=== PATIENT | female | born 1935 | race Caucasian/White ===

== ENCOUNTER → 2018-04-25 | Outpatient (CLI) | payer MEDICARE, OTHER | END | disposition home or self-care (01) | LOC: EKG 10:07 | DX: I38 Endocarditis, valve unspecified (principal) | CPT/HCPCS: 93306 ==

== ENCOUNTER → 2019-05-16 | Outpatient (CLI) | payer MEDICARE, OTHER | END | disposition home or self-care (01) | LOC: EKG 09:03 | DX: I50.9 Heart failure, unspecified (principal) | CPT/HCPCS: 93306 ==